=== PATIENT | female | born 1995 | race African-American/Black ===

== ENCOUNTER 2019-06-02 18:24 | Emergency (ER) | payer MEDICAID ==
[~2019-06-02] VITALS: Ht 154.9 cm; Wt 76.2 kg
--- NOTE | 2019-06-02 18:40 | NUR ---
Called patient x 1, no answer
--- NOTE | 2019-06-02 18:45 | NUR ---
Called pt x 2 , no answer
--- NOTE | 2019-06-02 19:06 | NUR ---
Pt called for triage, not present to ER waiting room. Pt LWBS.
--- NOTE | 2019-06-02 19:25 | NUR ---
Pt returns to ER admitting stating that she was waiting in her car. Instructed pt that she must remain in ER waiting room to be triaged and placed to bed when available. Pt verbalizes understanding.
[2019-06-02 19:30] VITALS: BP_SYST 132
--- NOTE | 2019-06-02 19:35 | NUR ---
Pt placed to ER waiting room in stable condition. Urine specimen cup provided.
[2019-06-02 21:11] LABS: BILIRUBIN,URINE NEGATIVE (NEGATIVE); CLARITY/URINE SL CLOUDY (CLEAR); COLOR,URINE YELLOW (YELLOW); GLUCOSE,URINE NEGATIVE (NEGATIVE); KETONES,URINE NEGATIVE (NEGATIVE); LEUKOCYTE ESTERASE ,URINE 2+ (NEGATIVE); NITRITE, URINE NEGATIVE (NEGATIVE); PROTEIN URINE NEGATIVE (NEGATIVE); UROBILINOGEN,URINE 0.2 (0.2-1.0)
[2019-06-02 21:18] LABS: BLOOD, URINE TRACE (NEGATIVE)
[2019-06-02 21:33] LABS: BACTERIA,URINE MODERATE /HPF (None Seen); MUCUS,URINE 2+ /LPF (None Seen); WBC,URINE >100 /HPF (0-3)
--- NOTE | 2019-06-02 21:54 | NUR ---
Pt placed to ER chair 1 awaiting MSE.
--- NOTE | 2019-06-02 21:59 | NUR ---
ER Dr. Mackenzie at bedside examining patient.
--- NOTE | 2019-06-02 22:10 | NUR ---
Pt C/O urinary frequency, hesitency, incontinence and excessive white-red vaginal discharge x 1 week. Denies any abdominal pain, burning, N/V, or any other symptoms at this time. Will continue to monitor.
[2019-06-02] MEDS: cefTRIAXone 1 GM VIAL IM ONE (22:31)
[2019-06-02] MEDS: PHENAZOPYRIDINE HCL 100 MG TABLET PO ONE (22:32)
[2019-06-02 22:39] VITALS: BP_SYST 128
--- NOTE | 2019-06-02 22:42 | NUR ---
Patient given written and verbal discharge instructions and verbalizes understanding. ER MD discussed with patient the results and treatment provided. Patient in stable condition. ID arm band removed. Rx of Pyridium and Bactrim given. Patient educated on pain management and to follow up with PMD. Pain Scale 0. Opportunity for questions provided and answered. Medication side effect fact sheet provided.
== END 2019-06-02 22:39 | disposition home or self-care (01) ==
LOC: SED 18:24
DX: N39.0 Urinary tract infection, site not specified (principal); J45.909 Unspecified asthma, uncomplicated
CPT/HCPCS: 81000; 81025; 87086; 96372; 99283; J0696

== ENCOUNTER 2019-06-20 11:49 | Emergency (ER) | payer MEDICAID ==
[~2019-06-20] VITALS: Ht 152.4 cm; Wt 77.1 kg
--- NOTE | 2019-06-20 11:49 | NUR ---
Patient to bed 5 and gown. Side rails up.
[2019-06-20 12:03] VITALS: BP_SYST 132
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
--- NOTE | 2019-06-20 12:30 | NUR ---
Dr. العراقي at bedside for examination.
[2019-06-20] MEDS ORDERED: AZITHROMYCIN 250 MG TABLET PO ONE (13:30)
[2019-06-20] MEDS ORDERED: cefTRIAXone 250 MG VIAL IM ONE (13:30)
--- NOTE | 2019-06-20 14:00 | NUR ---
Patient resting with no signs of distress.
[2019-06-20] MEDS ORDERED: metroNIDAZOLE 500 MG TABLET PO ONE (14:15)
[2019-06-20 14:35] VITALS: BP_SYST 132
--- NOTE | 2019-06-20 14:35 | NUR ---
Patient given written and verbal discharge instructions and verbalizes understanding. ER MD discussed with patient the results and treatment provided. Patient in stable condition. ID arm band removed. Rx of doxyclycline and flagyl given. Patient educated on pain management and to follow up with PMD. Pain Scale 0/10.Opportunity for questions provided and answered. Medication side effect fact sheet provided.
[2019-06-22 05:06] LABS: CHLAMYDIA TRACHOMATIS NAA Negative (Negative)
[2019-06-22 11:31] LABS: NEISSERIA GONORRHOEAE NAA Positive (Negative)
== END 2019-06-20 14:35 | disposition home or self-care (01) ==
LOC: SED 11:49
DX: N76.0 Acute vaginitis (principal); J45.909 Unspecified asthma, uncomplicated; Z90.49 Acquired absence of other specified parts of digestive tract
CPT/HCPCS: 87210; 87491; 87591; 96372; 99283; J0696; Q0144

== ENCOUNTER 2019-08-30 21:58 | Emergency (ER) | payer MEDICAID ==
[~2019-08-30] VITALS: Ht 152.4 cm; Wt 77.1 kg
[2019-08-30 22:07] VITALS: BP_SYST 134
[2019-08-30 22:38] LABS: BILIRUBIN,URINE NEGATIVE (NEGATIVE); BLOOD, URINE 2+ (NEGATIVE); COLOR,URINE YELLOW (YELLOW); GLUCOSE,URINE NEGATIVE (NEGATIVE); KETONES,URINE NEGATIVE (NEGATIVE); LEUKOCYTE ESTERASE ,URINE 1+ (NEGATIVE); NITRITE, URINE NEGATIVE (NEGATIVE); PROTEIN URINE TRACE (NEGATIVE); UROBILINOGEN,URINE 0.2 (0.2-1.0)
[2019-08-30 22:40] LABS: CLARITY/URINE HAZY (CLEAR)
[2019-08-30 23:13] LABS: BACTERIA,URINE FEW /HPF (None Seen)
[2019-08-30] MEDS ORDERED: cefTRIAXone 1 GM in LIDOCAINE 1%, 20 ML MDV 2.1 ML IM ONE (23:15)
[2019-08-30] MEDS ORDERED: LIDOCAINE 1% 10 MG/ML, 20 ML MDV INJ ONE (23:15)
[2019-08-30 23:34] VITALS: BP_SYST 133
== END 2019-08-30 23:34 | disposition home or self-care (01) ==
LOC: SED 21:58
DX: N39.0 Urinary tract infection, site not specified (principal); J45.909 Unspecified asthma, uncomplicated
CPT/HCPCS: 81000; 81025; 87086; 96372; 99283; J0696; J2001

== ENCOUNTER 2019-11-08 14:32 | Emergency (ER) | payer MEDICAID ==
[~2019-11-08] VITALS: Ht 154.9 cm; Wt 79.8 kg
[2019-11-08 14:55] VITALS: BP_SYST 124
--- NOTE | 2019-11-08 14:55 | NUR ---
Patient to ER bed 4 to gown for evaluation. Side rails up. Report given to [facility].
--- NOTE | 2019-11-08 15:05 | NUR ---
Pt came to ER with urinary frequency, burning, and hematuria. Worried that she may have UTI, she also states she has white vaginal discharge. Pt denies pain at this time and VSS.
[2019-11-08] MEDS ORDERED: AZITHROMYCIN 250 MG TABLET PO ONE (15:15)
[2019-11-08] MEDS ORDERED: cefTRIAXone 250 MG in LIDOCAINE 1%, 20 ML MDV 0.9 ML IM ONE (15:15)
--- NOTE | 2019-11-08 15:15 | NUR ---
ER at bedside examining patient.
[2019-11-08 15:33] LABS: BASOPHILS # (AUTO) 0.1 K/uL (0.0-0.2); BASOPHILS % (AUTO) 0.7 % (0.0-2.0); EOSINOPHILS # (AUTO) 0.1 K/uL (0.0-0.4); EOSINOPHILS % (AUTO) 1.3 % (0.0-4.0); HEMATOCRIT 40.3 % (36-48); HEMOGLOBIN 13.5 g/dL (12.0-16.0); LYMPHOCYTES # (AUTO) 4.1 K/uL (1.0-5.5); LYMPHOCYTES % (AUTO) 43.3 % (20.5-51.5); MEAN CORPUSCULAR HEMOGLOBIN 29 pg (27-31); MEAN CORPUSCULAR HGB CONC 33 % (32-36); MEAN CORPUSCULAR VOLUME 88 fL (79.0-98.0); MONOCYTES # (AUTO) 0.6 K/uL (0.0-1.0); MONOCYTES % (AUTO) 5.9 % (1.7-9.3); NEUTROPHILS # (AUTO) 4.6 K/uL (1.8-7.7); NEUTROPHILS % (AUTO) 48.8 % (40.0-70.0); PLATELET COUNT (AUTO) 290 K/uL (130-430); RED CELL DISTRIBUTION WIDTH 13.9 % (9.0-15.0); WHITE BLOOD COUNT (AUTO) 9.4 K/uL (4.8-10.8)
[2019-11-08 15:46] LABS: CALCIUM 8.8 mg/dL (8.4-11.0); CREATININE 0.84 mg/dL (0.55-1.30); POTASSIUM 3.9 mmol/L (3.5-5.1)
[2019-11-08 15:50] LABS: ALBUMIN 3.5 g/dL (3.4-4.8); TOTAL BILIRUBIN 0.3 mg/dL (0.0-1.0)
[2019-11-08 15:53] LABS: BILIRUBIN,URINE NEGATIVE (NEGATIVE); COLOR,URINE YELLOW (YELLOW); GLUCOSE,URINE NEGATIVE (NEGATIVE); KETONES,URINE NEGATIVE (NEGATIVE); LEUKOCYTE ESTERASE ,URINE 1+ (NEGATIVE); NITRITE, URINE NEGATIVE (NEGATIVE); PROTEIN URINE NEGATIVE (NEGATIVE); UROBILINOGEN,URINE 0.2 (0.2-1.0)
[2019-11-08 15:59] LABS: BLOOD, URINE TRACE (NEGATIVE)
[2019-11-08 16:00] LABS: CLARITY/URINE HAZY (CLEAR)
--- NOTE | 2019-11-08 16:24 | NUR ---
Pt resting in [facility] at this time no distress or other complaints noted
--- NOTE | 2019-11-08 16:40 | NUR ---
Patient given written and verbal discharge instructions and verbalizes understanding. ER MD discussed with patient the results and treatment provided. Patient in stable condition. ID arm band removed. Rx of Pyridium and Keflex given. Patient educated on pain management and to follow up with PMD. Pain Scale 0/10. Opportunity for questions provided and answered. Medication side effect fact sheet provided.
[2019-11-08 16:42] VITALS: BP_SYST 108
[2019-11-08 16:52] LABS: BACTERIA,URINE FEW /HPF (None Seen); MUCUS,URINE None Seen /LPF (None Seen); RBC,URINE 0-3 /HPF (0-3)
== END 2019-11-08 16:40 | disposition home or self-care (01) ==
LOC: SED 14:32
DX: N39.0 Urinary tract infection, site not specified (principal); J45.909 Unspecified asthma, uncomplicated; Z11.3 Encounter for screening for infections with a predominantly sexual mode of transmission
CPT/HCPCS: 36415; 80053; 81000; 81025; 85025; 87086; 87491; 87591; 96372; 99283; J0696; J2001; Q0144

== ENCOUNTER 2020-01-30 12:49 | Emergency (ER) | payer MEDICAID ==
[~2020-01-30] VITALS: Ht 153.7 cm; Wt 78.9 kg
[2020-01-30 13:06] VITALS: BP_SYST 115
[2020-01-30] MEDS: AZITHROMYCIN 250 MG TABLET PO ONE (13:46)
[2020-01-30] MEDS: cefTRIAXone 250 MG VIAL IM ONE (13:46)
[2020-01-30 14:23] VITALS: BP_SYST 136
== END 2020-01-30 14:10 | disposition home or self-care (01) ==
LOC: SED 12:49
DX: N76.0 Acute vaginitis (principal); J45.909 Unspecified asthma, uncomplicated
CPT/HCPCS: 87491; 87591; 96372; 99283; J0696; Q0144

== ENCOUNTER 2020-08-09 16:58 | Emergency (ER) | payer MEDICAID ==
[~2020-08-09] VITALS: Ht 152.4 cm; Wt 79.4 kg
[2020-08-09 17:19] VITALS: BP_SYST 126
[2020-08-09 18:28] LABS: BILIRUBIN,URINE NEGATIVE (NEGATIVE); COLOR,URINE YELLOW (YELLOW); GLUCOSE,URINE NEGATIVE (NEGATIVE); KETONES,URINE NEGATIVE (NEGATIVE); LEUKOCYTE ESTERASE ,URINE 1+ (NEGATIVE); NITRITE, URINE NEGATIVE (NEGATIVE); PROTEIN URINE NEGATIVE (NEGATIVE); UROBILINOGEN,URINE 0.2 (0.2-1.0)
[2020-08-09 18:30] LABS: BLOOD, URINE TRACE (NEGATIVE); CLARITY/URINE SLIGHTLY HAZY (CLEAR)
[2020-08-09] MEDS ORDERED: DOXY100C2 PO (18:41)
[2020-08-09 18:43] LABS: BACTERIA,URINE FEW /HPF (None Seen); RBC,URINE 0-3 /HPF (0-3); WBC,URINE 20-50 /HPF (0-3)
[2020-08-09 18:44] LABS: MUCUS,URINE 3+ /LPF (None Seen)
[2020-08-09] MEDS: cefTRIAXone 250 MG VIAL IM ONE (18:49)
[2020-08-09] MEDS: AZITHROMYCIN 250 MG TABLET PO ONE (18:49)
[2020-08-09 19:00] VITALS: BP_SYST 131
== END 2020-08-09 19:00 | disposition home or self-care (01) ==
LOC: SED 16:58
DX: A64 Unspecified sexually transmitted disease (principal); J45.909 Unspecified asthma, uncomplicated
CPT/HCPCS: 81000; 81025; 87086; 96372; 99283; J0696; Q0144

== ENCOUNTER 2021-03-24 17:34 | Emergency (ER) | payer MEDICAID ==
[~2021-03-24] VITALS: Ht 152.4 cm; Wt 79.4 kg
[~2021-03-24 17:34] MED LIST: DOXY100C5 PO
[2021-03-24 17:45] VITALS: BP_SYST 136
--- NOTE | 2021-03-24 20:12 | NUR ---
Patient to ER bed 3 to gown for evaluation. Side rails up. Report given to Janki BAKER.
[2021-03-24] MEDS ORDERED: cefTRIAXone 250 MG VIAL IM ONE (20:30)
[2021-03-24] MEDS ORDERED: AZITHROMYCIN 250 MG TABLET PO ONE (20:30)
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
[2021-03-24] MEDS ORDERED: AZITHROMYCIN 250 MG TABLET ONE (21:00)
--- NOTE | 2021-03-24 21:58 | NUR ---
Patient given written and verbal discharge instructions and verbalizes understanding. ER MD discussed with patient the results and treatment provided. Patient in stable condition. ID arm band removed. Rx of Doxycycline Hyclate 100mg twice a day given. Patient educated on pain management and to follow up with PMD. Pain Scale 0/10. Opportunity for questions provided and answered. Medication side effect fact sheet provided.
[2021-03-24 22:00] VITALS: BP_SYST 122
[2021-03-24 22:11] LABS: BILIRUBIN,URINE NEGATIVE (NEGATIVE); BLOOD, URINE NEGATIVE (NEGATIVE); CLARITY/URINE CLOUDY (CLEAR); COLOR,URINE YELLOW (YELLOW); GLUCOSE,URINE NEGATIVE (NEGATIVE); KETONES,URINE NEGATIVE (NEGATIVE); LEUKOCYTE ESTERASE ,URINE 2+ (NEGATIVE); NITRITE, URINE NEGATIVE (NEGATIVE); PROTEIN URINE TRACE (NEGATIVE); UROBILINOGEN,URINE 0.2 (0.2-1.0)
[2021-03-24 22:24] LABS: URINE SULFO SALICYLIC ACID NEGATIVE (NEGATIVE)
[2021-03-24 22:25] LABS: BACTERIA,URINE MANY /HPF (None Seen)
[2021-03-24 22:26] LABS: YEAST,URINE None Seen /HPF (None Seen)
[2021-03-29 21:06] LABS: CHLAMYDIA TRACHOMATIS NAA Negative (Negative); NEISSERIA GONORRHOEAE NAA Negative (Negative)
== END 2021-03-24 21:58 | disposition home or self-care (01) ==
LOC: SED 17:34
DX: N89.8 Other specified noninflammatory disorders of vagina (principal); Z11.3 Encounter for screening for infections with a predominantly sexual mode of transmission; J45.909 Unspecified asthma, uncomplicated; Z79.899 Other long term (current) drug therapy
CPT/HCPCS: 81000; 81025; 87086; 87186; 87491; 87591; 96372; 99283; J0696; Q0144

== ENCOUNTER 2021-06-19 19:39 | Emergency (ER) | payer MEDICAID ==
[~2021-06-19] VITALS: Ht 152.4 cm; Wt 79.4 kg
[2021-06-19 19:45] VITALS: BP_SYST 108
--- NOTE | 2021-06-19 19:45 | NUR ---
Patient ambulatory to bed 5 for evaluation and treatment
--- NOTE | 2021-06-19 19:49 | NUR ---
First contact. Pt providing urine sample at this time.
[2021-06-19] MEDS ORDERED: DIF100 PO ×2 (19:58→20:19)
[2021-06-19] MEDS ORDERED: FLUCONAZOLE 100 MG TABLET (DIFLUCAN) PO ONE (20:15)
--- NOTE | 2021-06-19 20:20 | NUR ---
Urine sent to lab.
[2021-06-19 20:21] VITALS: BP_SYST 110
[2021-06-22 00:06] LABS: CHLAMYDIA TRACHOMATIS NAA Negative (Negative); NEISSERIA GONORRHOEAE NAA Negative (Negative)
== END 2021-06-19 20:31 | disposition home or self-care (01) ==
LOC: SED 19:39
DX: B37.3 Candidiasis of vulva and vagina (principal); J45.909 Unspecified asthma, uncomplicated; Z79.899 Other long term (current) drug therapy
CPT/HCPCS: 81025; 87491; 87591; 99283

== ENCOUNTER 2021-11-18 12:53 | Emergency (ER) | payer MEDICAID ==
[~2021-11-18] VITALS: Ht 165.1 cm; Wt 79.4 kg
[~2021-11-18 12:53] MED LIST changes: +DIF100 PO
[2021-11-18 14:44] VITALS: BP_SYST 130
--- NOTE | 2021-11-18 14:48 | NUR ---
Patient triaged and placed in waiting room. VSS and patient appears in no acute distress at this time. Accompanied by SELF, awaiting available bed, and MD notified of need for MSE.
--- NOTE | 2021-11-18 15:00 | NUR ---
Patient brought in from home A&O x4 and ambulatory complaining of urinary incontinence with dysuria X 5 days. Patient reports she looked up her symptoms on the Internet and it stated she had a UTI. Patient denies any fevers, back pain, chest pain, nausea, vomiting, diarrhea, or constipation. Pain 2 out of 10.
[2021-11-18 15:22] LABS: BILIRUBIN,URINE NEGATIVE (NEGATIVE); BLOOD, URINE 2+ (NEGATIVE); CLARITY/URINE CLEAR (CLEAR); COLOR,URINE YELLOW (YELLOW); GLUCOSE,URINE NEGATIVE (NEGATIVE); KETONES,URINE TRACE (NEGATIVE); LEUKOCYTE ESTERASE ,URINE 1+ (NEGATIVE); NITRITE, URINE NEGATIVE (NEGATIVE); PROTEIN URINE NEGATIVE (NEGATIVE); UROBILINOGEN,URINE 0.2 (0.2-1.0)
[2021-11-18 15:28] LABS: BACTERIA,URINE FEW /HPF (None Seen); MUCUS,URINE 1+ /LPF (None Seen); RBC,URINE 0-3 /HPF (0-3)
[2021-11-18] MEDS ORDERED: NITR-85 PO (16:14)
--- NOTE | 2021-11-18 16:19 | NUR ---
Dr. Johnson in triage examining patient.
--- NOTE | 2021-11-18 16:26 | NUR ---
Patient given written and verbal discharge instructions and verbalizes understanding. ER MD discussed with patient the results and treatment provided. Patient in stable condition. ID arm band removed. Rx of Macrobid given. Patient educated on pain management and to follow up with PMD. Pain Scale 2/10 Opportunity for questions provided and answered. Medication side effect fact sheet provided.
[2021-11-19 01:48] VITALS: BP_SYST 122
== END 2021-11-18 16:26 | disposition home or self-care (01) ==
LOC: SED 12:53
DX: N39.0 Urinary tract infection, site not specified (principal); J45.909 Unspecified asthma, uncomplicated; R30.0 Dysuria; Z79.899 Other long term (current) drug therapy
CPT/HCPCS: 81000; 87086; 99283